=== PATIENT | female | born 1975 | race Caucasian/White ===

== ENCOUNTER 2017-04-26 23:44 | Emergency (ER) | payer OTHER ==
[2017-04-27] VITALS: RESP 20
[2017-04-27] MEDS ORDERED: Sodium Chloride 0.9% 1,000 ML IV ONE (00:37)
[2017-04-27 01:05] LABS: RBC URINE 5 /hpf (0-3); URINE BACTERIA RARE (<OCC); URINE BILIRUBIN NEGATIVE (NEGATIVE); URINE BLOOD 1+ (NEGATIVE); URINE COLOR Yellow (YELLOW); URINE GLUCOSE (UA) NORMAL (Normal); URINE KETONE NEGATIVE (NEGATIVE); URINE LEUKOCYTE ESTERASE NEG Leu/uL (Negative); URINE PROTEIN NEGATIVE (NEGATIVE); URINE UROBILINOGEN NORMAL mg/dL (0.2-1.0); WBC URINE < 1 /hpf (0-5)
[2017-04-27 01:06] LABS: BASO % 0.3 % (0.0-2.0); EOS # 0.1 K/uL (0.0-0.7); EOS % 1.1 % (0.0-4.0); HEMATOCRIT 44.6 % (34.0-47.0); LYMPH # 3.7 K/uL (1.0-4.3); LYMPH % 32.9 % (20.0-40.0); MEAN CELL VOLUME 93.2 fL (81.0-99.0); MEAN CORPUSCULAR HEMOGLOBIN 30.7 pg (27.0-31.0); MEAN CORPUSCULAR HGB CONC 32.9 g/dL (33.0-37.0); MEAN PLATELET VOLUME 9.7 fL (7.2-11.7); MONO # 0.6 K/uL (0.0-0.8); MONO % 5.3 % (0.0-10.0); RED CELL DISTRIBUTION WIDTH 13.5 % (11.5-14.5); WHITE BLOOD COUNT 11.3 K/uL (4.8-10.8)
[2017-04-27] MEDS ORDERED: Sodium Chloride 0.9% 1,000 ML ONE (01:09)
[2017-04-27 01:32] LABS: CHLORIDE 104 mmol/L (98-107); POTASSIUM 3.6 mmol/L (3.6-5.2); SODIUM 140 mmol/L (132-148)
[2017-04-27 01:34] LABS: ALB/GLOB RATIO 1.3 (1.0-2.1); ALKALINE PHOSPHATASE 85 U/L (38-126); AST/SGOT 36 U/L (14-36); BILIRUBIN,TOTAL 0.6 mg/dL (0.2-1.3); CARBON DIOXIDE 21 mmol/L (22-30); GFR AFRICAN-AMERICAN > 60; TOTAL PROTEIN 7.9 g/dL (6.3-8.3)
[2017-04-27 01:35] LABS: ALT/SGPT 56 U/L (9-52); BLOOD UREA NITROGEN 10 mg/dL (7-17); CALCIUM 9.7 mg/dl (8.6-10.4); GLUCOSE,RANDOM 84 mg/dL (65-105)
[2017-04-27] MEDS ORDERED: Iodixanol 320 MG/ML 100 ML BOTTLE IV ONE (02:04)
--- NOTE | 2017-04-27 03:06 | C.PDOC ---
History Of Present Illness A 41 y/o F presents to the ER c/o LLQ abdominal discomfort for the past 3 days. Patient reports no change in stool. Denies fever, chills, nausea, vomiting, vaginal bleeding or discharge, or any other complaints. Time Seen by Provider: 04/27/17 00:32 Chief Complaint (Nursing): Abdominal Pain History Per: Patient History/Exam Limitations: no limitations Onset/Duration Of Symptoms: Days (3) Current Symptoms Are (Timing): Still Present Severity: Mild Location Of Pain/Discomfort: LLQ Quality Of Discomfort: "Pain" Associated Symptoms: denies: Fever, Chills, Nausea, Vomiting, Diarrhea Recent travel outside of the [place]: No Additional History Per: Patient Abnormal Vaginal Bleeding: No Past Medical History Reviewed: Historical Data, Nursing Documentation, Vital Signs Vital Signs: Last Vital Signs Temp 98.8 F 04/26/17 23:58 Pulse 73 04/26/17 23:58 Resp 20 04/26/17 23:58 BP 108/70 04/26/17 23:58 Pulse Ox 97 04/27/17 03:07 Surgical History: Cholecystectomy Family History: States: Unknown Family Hx - Social History Hx Tobacco Use: No Hx Alcohol Use: No Hx Substance Use: No - Immunization History Hx Tetanus Toxoid Vaccination: Yes Hx Influenza Vaccination: No Hx Pneumococcal Vaccination: No Review Of Systems Except As Marked, All Systems Reviewed And Found Negative. Constitutional: Negative for: Fever, Chills Gastrointestinal: Positive for: Abdominal Pain. Negative for: Nausea, Vomiting , Diarrhea Genitourinary: Negative for: Vaginal Discharge, Vaginal Bleeding Physical Exam - Physical Exam Appears: Non-toxic, No Acute Distress Skin: Warm, Dry Head: Atraumatic, Normacephalic Cardiovascular: Rhythm Regular Respiratory: Normal Breath Sounds, No Rales, No Rhonchi, No Wheezing Gastrointestinal/Abdominal: Soft, Tenderness (Tenderness LLQ), No Guarding, No Rebound Back: Normal Inspection, No CVA Tenderness Neurological/Psych: Oriented x3, Normal Speech, Normal Cognition ED Course And Treatment - Laboratory Results Result Diagrams: 04/27/17 00:55 04/27/17 00:55 Lab Interpretation: Abnormal (mild leukocytosis, UA neg,) Urine POC: Negative O2 Sat by Pulse Oximetry: 97 (RA) Pulse Ox Interpretation: Normal Reevaluation Time: 03:55 Reassessment Condition: Improved Medical Decision Making Medical Decision Making: Impression: A 41 y/o F presents to the ER c/o LLQ abdominal discomfort for the past 3 days. Plans: * CT Abd/Pel * Toradol * IV fluids * Reassess 0400: probable L ovarian cyst outpatient pelvic US may follow Disposition Doctor Will See Patient In The: Office Counseled Patient/Family Regarding: Studies Performed, Diagnosis - Disposition Referrals: Non [facility] Provider, [Primary Care Provider] - Disposition: HOME/ ROUTINE Disposition Time: 03:56 Condition: GOOD Forms: [employer] (Setswana) - Clinical Impression Clinical Impression: Ovarian cyst - Scribe Statement The provider has reviewed the documentation as recorded by the Scribe [facility] All medical record entries made by the Scribe were at my direction and personally dictated by me. I have reviewed the chart and agree that the record accurately reflects my personal performance of the history, physical exam, medical decision making, and the department course for this patient. I have also personally directed, reviewed, and agree with the discharge instructions and disposition.
--- NOTE | 2017-04-27 03:48 | CT ---
EXAM: CT Abdomen and Pelvis With Intravenous Contrast CLINICAL HISTORY: 41 years old, female; Pain; Abdominal pain; Patient HX: 03-26-16 and 06-28-14. Images was sent already; Additional info: Llq x 3 days, diverticulitis vs renal colic TECHNIQUE: Axial computed tomography images of the abdomen and pelvis with intravenous contrast. All CT scans at this facility use one or more dose reduction techniques, viz.: automated exposure control; ma/kV adjustment per patient size (including targeted exams where dose is matched to indication; i.e. head); or iterative reconstruction technique. Coronal and sagittal reformatted images were created and reviewed. CONTRAST: 100 mL of [id number] administered intravenously. COMPARISON: CT - ABD PELVIS PO IV CONTRAST 06/28/2014 1:10:05 PM FINDINGS: Limitations: Motion artifact - mild. Lower thorax: No acute findings. ABDOMEN: Liver: Mild fatty infiltration. Gallbladder and bile ducts: Gallbladder not visualized. No ductal dilation. Pancreas: No ductal dilation. No mass. Spleen: No splenomegaly. Adrenals: No mass. Kidneys and ureters: No mass. No hydronephrosis. Stomach and bowel: No definite mural thickening. No obstruction. Appendix: No findings to suggest acute appendicitis. PELVIS: Bladder: Unremarkable. Reproductive: 4.2 x 4.4 x 5.0 cm hypodense lesion within LEFT ovary. ABDOMEN and PELVIS: Intraperitoneal space: Trace free fluid within pelvis. No free air. Bones/joints: No acute fracture. Soft tissues: Unremarkable. Vasculature: Unremarkable. No aneurysm. Lymph nodes: No pathologically enlarged lymph nodes. IMPRESSION: 1. Probable LEFT ovarian cyst. Suggest ultrasound. 2. Incidental/non-acute findings are described above.
[2017-04-27 04:05] VITALS: BP 111/69; PULSE 85; TEMP 97.8; O2SAT 98
== END 2017-04-27 04:05 | disposition home or self-care (01) ==
LOC: SUPCPDRO 23:44 → C.ER 23:44
DX: N83.202 Unspecified ovarian cyst, left side (principal)
CPT/HCPCS: 74177; 80053; 81001; 83690; 84703; 85025; 96361; 96374; 99284; J1885; J7040; Q9967

== ENCOUNTER 2018-01-25 06:32 | Inpatient (IN) | payer MEDICAID, OTHER ==
[2018-01-25 07:13] VITALS: BMI 32.5
--- NOTE | 2018-01-25 07:18 | OBHP ---
Datetime: 01/25/2018 07:15 IP Adm Impression: Term, intrauterine ; Ruptured Membranes IP Admit Plan: Admit to unit; Initiate labor protocol Admit Comment, IP Provider: at 38.5weeks came with c/o rom atr5 am . irrg ctxs, no vnb, +fm obhx 2 x pmh de med pnv a;ll nkda psh de soch de sse +poooling,+nitra a/p at 38.5weeks prom admit to l_d npo/ivf cytotec cont tov and efm ronny lazaro anticipate Pelvic Type - PN: Adequate Extremities - PN: Normal Abdomen - PN: Normal Back - PN: Normal Breast - PN: Normal Lungs - PN: Normal Heart - PN: Normal Thyroid - PN: Normal Neurologic - PN: Normal HEENT - PN: Normal General - PN: Normal FHR - Baseline A Provider: 130 Contraction Comments Provider: irrg IP Hx Assessment: The History has been Reviewed and is Current EGA AdmitDate IP: 38.5 Vital Signs Provider: Reviewed; Within Normal Limits IP Chief Complaint: Suspected ruptured membranes NICHD Variability Prov Fetus A: Moderate 6-25bpm Dilatation, Provider: 0 Effacement, Provider: 30 Station, Provider: -3 Genitourinary Exam: Normal DTRs - PN: Normal
[2018-01-25] MEDS ORDERED: Lactated Ringer's 1,000 ML IV SCH (08:00)
[2018-01-25 08:54] LABS: BASO # 0.1 K/uL (0.0-0.2); BASO % 1.1 % (0.0-2.0); EOS # 0.1 K/uL (0.0-0.7); EOS % 0.5 % (0.0-4.0); HEMOGLOBIN 12.8 g/dL (11.0-16.0); LYMPH # 2.3 K/uL (1.0-4.3); LYMPH % 21.6 % (20.0-40.0); MEAN CELL VOLUME 89.5 fL (81.0-99.0); MEAN CORPUSCULAR HEMOGLOBIN 30.5 pg (27.0-31.0); MEAN PLATELET VOLUME 10.6 fL (7.2-11.7); MONO # 0.7 K/uL (0.0-0.8); MONO % 6.6 % (0.0-10.0); NEUT # 7.4 K/uL (1.8-7.0); NEUT % 70.2 % (50.0-75.0); NRBC % 0.1 % (0.0-2.0); RBC 4.18 Mil/uL (3.80-5.20); WHITE BLOOD COUNT 10.5 K/uL (4.8-10.8)
[2018-01-25 09:05] LABS: SQUAMOUS EPITHIAL 2 /hpf (0-5); URINE BACTERIA RARE (<OCC); URINE BILIRUBIN NEGATIVE (NEGATIVE); URINE BLOOD NEGATIVE (NEGATIVE); URINE CLARITY Clear (Clear); URINE COLOR Straw (YELLOW); URINE GLUCOSE (UA) NORMAL (Normal); URINE LEUKOCYTE ESTERASE NEG Leu/uL (Negative); URINE PROTEIN NEGATIVE (NEGATIVE); URINE UROBILINOGEN NORMAL mg/dL (0.2-1.0)
[2018-01-25 09:08] LABS: ALB/GLOB RATIO 0.9 (1.0-2.1); ALBUMIN 3.4 g/dL (3.5-5.0); ALT/SGPT 16 U/L (9-52); AST/SGOT 23 U/L (14-36); BLOOD UREA NITROGEN 10 mg/dL (7-17); GFR AFRICAN-AMERICAN > 60; GFR NON-AFRICAN AMERICAN > 60
--- NOTE | 2018-01-25 10:07 | OBPN ---
Datetime: 01/25/2018 10:05 IP Procedures: Sterile Vag Exam IP Progress Plan: Continue present management FHR - Baseline A Provider: 130 IP Progress Note Comment: pt was examined at bed side. ve 2/60/-2 plan pain mN ANTICIPATE Vital Signs Provider: Reviewed; Within Normal Limits NICHD Accel Fetus A IP Provider: [id number] FHR Category Provider Fetus A: Category I NICHD Variability Prov Fetus A: Moderate 6-25bpm Dilatation, Provider: 2 Effacement, Provider: 60 Station, Provider: -2 Datetime: 01/25/2018 07:15 Contraction Comments Provider: irrg
[2018-01-25] MEDS ORDERED: Lidocaine 2% MPF (5 ml) Inj ONE ×2 (15:51)
[2018-01-25] MEDS ORDERED: Benzocaine/Menthol 20%-0.5% Topical Spray (60 ml) TOP PRN ×2 (17:23→17:45)
[2018-01-25] MEDS ORDERED: Oxycodone/Acetaminophen 5/325 mg Tab PO PRN ×2 (17:23)
[2018-01-25] MEDS ORDERED: Oxytocin 30 UNIT 30 UNITS/500 ML BAG IV SCH (17:30)
--- NOTE | 2018-01-25 18:00 | OBDS ---
DELIVERY PERSONNEL Delivery Doctor: Tre Cruz MD [employer] Quality Inspector: Ayse Pate RN MATERNAL INFORMATION Provider Comments: baby deliverd in with right arm. 9/9 peads prse end clean no com LABOR SUMMARY EDC: 02/03/2018 00:00 No. Babies in Womb: 1 LABOR INFORMATION Onset of Labor: 01/25/2018 15:16 Cervical Ripening Agents: Cytotec @ (Annotations: cytotec [facility]) Group B Beta Strep: Negative MEMBRANES Membranes Rupture Method: Spontaneous Rupture of Membranes: 01/25/2018 05:20 Length of Rupture (hrs): 12.43 Amniotic Fluid Color: Clear Amniotic Fluid Amount: Moderate Amniotic Fluid Odor: None STAGES OF LABOR Stage 3 hrs: 0 Stage 3 min: 8 Total Time in Labor hrs: 2 Total Time in Labor min: 38 BABY A INFORMATION Delivery Date/Time: 01/25/2018 17:46 Method of Delivery: Vaginal Forceps: N/A Vacuum Extraction: N/A Shoulder Dystocia : No SHOULDER DYSTOCIA BABY A Delivery Date/Time: 01/25/2018 17:46 PRESENTATION/POSITION BABY A Presentation: Cephalic Cephalic Presentation: Vertex Vertex Position: Left Occipital Anterior Breech Presentation: N/A PLACENTA INFORMATION BABY A Placenta Delivery Time : 01/25/2018 17:54 Placenta Method of Delivery: Spontaneous Placenta Status: Delivered IDENTIFICATION/MEDS BABY A ID Band Number: [id number] Sensor Number: [id number]
[2018-01-26 08:28] LABS: BASO % 0.3 % (0.0-2.0); HEMOGLOBIN 12.6 g/dL (11.0-16.0); LYMPH # 2.1 K/uL (1.0-4.3); LYMPH % 11.3 % (20.0-40.0); MEAN CELL VOLUME 91.2 fL (81.0-99.0); MEAN CORPUSCULAR HEMOGLOBIN 30.7 pg (27.0-31.0); MEAN CORPUSCULAR HGB CONC 33.6 g/dL (33.0-37.0); MONO # 0.9 K/uL (0.0-0.8); NEUT # 15.6 K/uL (1.8-7.0); NEUT % 83.4 % (50.0-75.0); RBC 4.12 Mil/uL (3.80-5.20); RED CELL DISTRIBUTION WIDTH 14.1 % (11.5-14.5)
[2018-01-26 08:30] LABS: WHITE BLOOD COUNT 18.8 K/uL (4.8-10.8)
[2018-01-27 08:02] LABS: BASO % 0.2 % (0.0-2.0); EOS # 0.1 K/uL (0.0-0.7); EOS % 0.7 % (0.0-4.0); HEMOGLOBIN 11.4 g/dL (11.0-16.0); LYMPH # 2.8 K/uL (1.0-4.3); LYMPH % 25.7 % (20.0-40.0); MEAN CELL VOLUME 90.5 fL (81.0-99.0); MEAN CORPUSCULAR HEMOGLOBIN 31.2 pg (27.0-31.0); MEAN CORPUSCULAR HGB CONC 34.4 g/dL (33.0-37.0); MEAN PLATELET VOLUME 10.1 fL (7.2-11.7); MONO # 0.7 K/uL (0.0-0.8); MONO % 6.2 % (0.0-10.0); NEUT # 7.2 K/uL (1.8-7.0); NEUT % 67.2 % (50.0-75.0); RBC 3.66 Mil/uL (3.80-5.20); RED CELL DISTRIBUTION WIDTH 14.1 % (11.5-14.5); WHITE BLOOD COUNT 10.7 K/uL (4.8-10.8)
--- NOTE | 2018-01-27 09:48 | CP.PCM.PN ---
Subjective - Date & Time of Evaluation Date of Evaluation: 01/27/18 Time of Evaluation: 09:45 - Subjective Subjective: Pt doing well. Lochia moderate. Tolerating diet. Objective - Vital Signs/Intake and Output Vital Signs (last 24 hours): Temp Pulse Resp BP Pulse Ox 97.8 F 88 20 101/70 99 01/27/18 00:00 01/27/18 00:00 01/27/18 00:00 01/27/18 00:00 01/26/18 16:00 - Medications Medications: Current Medications Benzocaine/Menthol (Dermoplast 20%-0.5%) 0 ml TOP DAILY PRN PRN Reason: FOR PERIANAL DISCOMFORT Docusate Sodium (Colace) 100 mg PO BID [facility] Last Admin: 01/26/18 10:49 Dose: 100 mg Lactated Ringer's (Lactated Ringer's) 1,000 mls @ 125 mls/hr IV .Q8H [facility] Last Admin: 01/25/18 08:30 Dose: 125 mls/hr Oxytocin (Pitocin) 30 units in 500 mls @ 125 mls/hr IV .Q4H [facility] Ibuprofen (Motrin Tab) 600 mg PO Q6 PRN PRN Reason: Pain, Mild (1-3) Last Admin: 01/27/18 08:06 Dose: 600 mg Oxycodone/Acetaminophen (Percocet 5/325 Mg Tab) 1 tab PO Q4H PRN PRN Reason: Pain, moderate (4-7) Stop: 01/28/18 17:24 Oxycodone/Acetaminophen (Percocet 5/325 Mg Tab) 2 tab PO Q4H PRN PRN Reason: Pain, severe (8-10) Stop: 01/28/18 17:24 - Labs Labs: 01/27/18 07:41 01/25/18 08:49 - Constitutional Appears: Well - GI/Abdominal Exam GI & Abdominal Exam: Soft, Normal Bowel Sounds. absent: Tenderness - Additional Findings Additional findings: ABD: Soft, Nt. Uterus firm below the umbilicus. EXt: No CAlf tenderness Assessment and Plan - Assessment and Plan (Free Text) Assessment: 42 y/o S/P Doing well. DC home F[facility] 6 wks or earlier if needed Plan: DC home
--- NOTE | 2018-01-27 10:39 | OBPPN ---
Datetime: 01/27/2018 10:36 PP Pain Prov: Within normal limits PP Nausea Prov: Denies PP Flatus Prov: Yes PP BM Prov: Yes PP Heart Prov: Normal PP Lungs Prov: Normal PP Abdomen/Uterus Prov: Normal PP Lochia Prov: Normal PP Extremities Prov: Normal PP Impression Prov: Normal progression PP Plan Prov: Discharge PP Progress Note Prov: PPD #2 Doing well White count normal today DC instructions discussed DC home IP PP Procedures: None Vital Signs Provider PP: Reviewed
--- NOTE | 2018-01-27 10:41 | OBDCSUM ---
Datetime: 01/27/2018 09:42 Discharged to, Provider: Home Follow up at, Provider: [facility] Disch Instr Activity: January Shower Disch Instr Diet: Regular Discharge Diet restrict Prov: none Discharge Instructions, Provider: Routine instructions given Discharge Diagnosis, Provider: Term Delivered Discharge Time: 01/27/2018 10:00 Follow up in weeks, Provider: february Disch Referrals: None Contraception discussed, Prov: Yes Disch Activity Restrictions: No exercising; No lifting; No sexual activity; Nothing in vagina - Inte rcourse, tampons, douche
[2018-01-27 11:28] VITALS: PULSE 93; RESP 18; TEMP 98.5; O2SAT 98
--- NOTE | 2018-01-27 11:28 | OBPPN ---
Datetime: 01/26/2018 21:49 PP Breasts Prov: Normal PP Heart Prov: Normal PP Lungs Prov: Normal PP Abdomen/Uterus Prov: Normal PP Lochia Prov: Normal PP Vulva/Perineum Prov: Normal PP CVA Tenderness Prov: Normal PP Comments Phys Exam Prov: fundus firm PP Impression Prov: Normal progression PP Plan Prov: Continue present management PP Progress Note Prov: PPD#1 1) vitals stable. 2) Elevated WBC 18. afebrile -> repeat cbc in the am. 3) Continue routine PP care. IP PP Procedures: None Vital Signs Provider PP: Reviewed
[2018-01-27 20:34] VITALS: BP 124/74
== END 2018-01-27 13:00 | disposition home or self-care (01) | DRG 775 ==
LOC: C.EROB 06:32 → C.4D 07:19 → C.4M 22:05
PROVIDERS: ADMIT Obstetrics & Gynecology; ATTEND Obstetrics & Gynecology
PROC: 10E0XZZ Delivery of Products of Conception, External Approach (ICD-10-PCS; principal; 2018-01-25)
PROC: 3E0P7VZ Introduction of Hormone into Female Reproductive, Via Natural or Artificial Opening (ICD-10-PCS; 2018-01-25)
DX: O42.02 Full-term premature rupture of membranes, onset of labor within 24 hours of rupture (principal); O75.89 Other specified complications of labor and delivery; D72.829 Elevated white blood cell count, unspecified; Z3A.38 38 weeks gestation of pregnancy; Z37.0 Single live birth